=== PATIENT | male | born 1965 | race Caucasian/White ===

== ENCOUNTER → 2023-07-12 | Outpatient (CLI) | payer BC ==
[2023-07-12 13:14] LABS: Basophils # (A) 0.06 X 10*3/uL (0.00-0.10); Eosinophils % (A) 4.9 %; HCT 45.5 % (39.6-50.0); HGB 15.4 g/dL (13.0-17.0); Lymphocytes # (A) 1.93 X 10*3/uL (0.90-5.00); Lymphocytes % (A) 31.7 %; MCH 31.3 pg (27.0-32.0); MCHC 33.8 g/dL (32.0-37.0); MCV 92.5 FL (80.0-97.0); Mean Platelet Volume 10.6 FL (9.5-12.2); Monocytes # (A) 0.53 X 10*3/uL (0.20-1.00); Monocytes % (A) 8.7 %; NRBC Per 100 WBC 0 X 10*3/uL (0.00-0.01); Neutrophils # (A) 3.25 X 10*3/uL (1.80-7.70); Neutrophils % (A) 53.4 %; Platelet Count 216 X 10*3/uL (140-440); RBC 4.92 X 10*6/uL (4.40-5.60); RDW 12.2 % (11.5-14.5); WBC 6.09 X 10*3/uL (4.50-10.00)
[2023-07-12 13:18] LABS: Calcium 9.2 mg/dL (8.7-10.3); Chloride 103 mmol/L (96-109); Glucose 117 mg/dL (70-110); Potassium 4.3 mmol/L (3.5-5.5); Sodium 137 mmol/L (135-145)
[2023-07-12 13:46] LABS: INR 1.01 sec (0.93-1.11); Prothrombin Time 10.9 sec (9.9-11.9)
== END | disposition home or self-care (01) ==
LOC: LABPAT 08:09
PROVIDERS: ATTEND Orthopaedic Surgery
DX: Z01.818 Encounter for other preprocedural examination (principal); M17.12 Unilateral primary osteoarthritis, left knee; Z22.322 Carrier or suspected carrier of Methicillin resistant Staphylococcus aureus
CPT/HCPCS: 80048; 85025; 85610; 87070; 93005

== ENCOUNTER 2023-08-05 08:25 | Day surgery (SDC) | payer BC ==
[2023-07-31 15:30] VITALS: BMI 30.3
--- NOTE | 2023-08-04 08:35 | P.HPOR ---
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 He notes swelling and stiffness. He has a difficult time with walking and getting up from a seated position. He has a history of a patella fracture treated operatively in the 80s. Review of Systems As per HPI Past Medical History Past Medical History: No Reported History History of Any Multi-Drug Resistant Organisms: None Reported Past Surgical History: Orthopedic Surgery Additional Past Surgical History / Comment(s): left knee surgery with hardware x2 (shattered knee), left arm shattered and repaired with hardware and later hardware removed, eye surgery for metal removal Past Anesthesia/Blood Transfusion Reactions: No Reported Reaction Past Psychological History: No Psychological Hx Reported Smoking Status: Never smoker Past Alcohol Use History: Rare Past Drug Use History: None Reported - Past Family History Mother Family Medical History: Unable to Obtain Additional Family Medical History / Comment(s): does not know any family or hx Medications and Allergies Home Medications Medication Instructions Recorded Confirmed Type No Known Home Medications 07/31/23 07/31/23 History Allergies Allergy/AdvReac Type Severity Reaction Status Date / Time acetaminophen [From Vicodin] Allergy "felt Verified 07/31/23 15:18 funny and uncomfortable, anxious" hydrocodone [From Vicodin] Allergy "felt Verified 07/31/23 15:18 funny and uncomfortable, anxious" morphine AdvReac Nausea & Verified 07/31/23 15:18 Vomiting Physical Examination - Knee left Appearance: effusion Effusion grade: grade 2 Varus alignment in stance: 5 degrees Tenderness with palpation: anterior, medial Pain: throughout ROM Gait: limping ROM: extension: -15 degrees ROM: flexion: 120 degrees Crepitus with motion: Yes Strength: extension: 5/5 Strength: flexion: 5/5 Meniscal tests: medial meniscal tests: positive, medial joint line pain: positive Results Patient is a well-developed well-nourished male approximately 6 foot 1, 230 pounds of mesomorphic habitus. HEENT exam is nonfocal, neck supple. He has painless passive motion of the left hip. Straight leg raise is negative. He's tender about the anterior medial aspect of left knee. He has moderate crepitus. Collaterals are stable, Jozef was negative, Tulio's elicits medial pain. He has pain with patellofemoral compression. His distal neurovascular appears intact in the left lower extremity. - Diagnostic results Knee x-ray: image reviewed (X-rays of the left knee obtain the office show severe patellofemoral compartment osteoarthrosis with moderate to severe medial and lateral compartment osteoarthrosis/chondrocalcinosis. Broken patellar hardware is noted.) Assessment and Plan Assessment: Left knee severe patellofemoral compartment osteoarthrosis/pseudogout History of ORIF left patella fracture with irritating hardware Plan: I talked to the patient regarding his condition along with treatment options. At this point he is quite symptomatic and limited despite previous conservative measures. After a thorough discussion of his options he opts to proceed with surgery. We will plan to proceed with left total knee arthroplasty along with possible hardware removal. Risks and benefits were discussed at length in layman's terms. We will institute DVT prophylaxis postoperatively.
[~2023-08-05 08:25] MED LIST: MIDAZOLAM 2 MG/2 ML VIAL IV PRN; TRANEXAMIC 1,000 MG/100ML-NACL 1,000 MG in SALINE 1 100ML.BAG IVPB PRN; fentaNYL (PF) 50 MCG/ML 2 ML AMP IV PRN
[2023-08-05] MEDS: LACTATED RINGERS 1,000 ML IV ONE ×2 (08:39→12:15)
[2023-08-05] MEDS: MELOXICAM 7.5 MG TAB PO PRN (09:20)
[2023-08-05] MEDS: DEXAMETHASONE SOD PHOSPHATE 4 MG/ML 1 ML VIAL IV ONE (09:20)
[2023-08-05] MEDS: ACETAMINOPHEN TAB 500 MG TAB PO PRN (09:20)
[2023-08-05] MEDS: ONDANSETRON 4 MG/2 ML VIAL IVP ONE (09:20)
[2023-08-05] MEDS: MIDAZOLAM 2 MG/2 ML VIAL IVP ONE (09:35)
[2023-08-05] MEDS: fentaNYL (PF) 50 MCG/ML 2 ML AMP IVP ONE (09:35)
[2023-08-05] MEDS ORDERED: PROPOFOL 10 MG/ML 20 ML VIAL IV ONE (10:10)
[2023-08-05] MEDS ORDERED: ROPIVACAINE 5 MG/ML 30 ML VIAL ONE (10:10)
[2023-08-05] MEDS ORDERED: SODIUM CHLORIDE 0.9% (PF) 10 ML VIAL ONE (10:10)
[2023-08-05] MEDS ORDERED: fentaNYL (PF) 50 MCG/ML 2 ML AMP ONE (10:10)
[2023-08-05] MEDS ORDERED: GLYCOPYRROLATE 0.2 MG/ML 2 ML VIAL ONE (10:10)
[2023-08-05] MEDS ORDERED: TRANEXAMIC 1,000 MG/100ML-NACL PREMIX BAG ONE (10:10)
[2023-08-05] MEDS ORDERED: MIDAZOLAM 2 MG/2 ML VIAL ONE (10:10)
--- NOTE | 2023-08-05 10:16 | P.ANPRN ---
Procedure Note - Anesthesia - Nerve Block Performed Left Adductor Canal Infusion Time Out Performed: Yes (0934) Date of Procedure: 08/05/23 Procedure Start Time: :35 Procedure Stop Time: :40 Location of Patient: PreOp Indication: Acute Post-Operative Pain, Requested by Surgeon Specifically requested for management of pain by : Arsenio Sorenson Sedation Type: Sedate with meaningful contact maintained Preparation: Sterile Prep, Sterile Dressing Position: Supine Catheter Depth at Skin (cm): 8 Catheter: Indwelling Needle Types: Pajunk Needle Gauge: 18 Ultrasound used to visualize needle placement: Yes Ultrasound used to observe medication spread: Yes Injectate: 0.5% Ropivacaine (see comment for volume) (20cc +10cc nacl pf) Blood Aspirated: No Pain Paresthesia on Injection Noted: No Resistance on Injection: Normal Image Stored and Saved: Yes Events: Uneventful and Well Tolerated
--- NOTE | 2023-08-05 10:17 | P.ANPRN ---
Procedure Note - Anesthesia - Nerve Block Performed Left iPack Single Time Out Performed: Yes (0934) Date of Procedure: 08/05/23 Procedure Start Time: :41 Procedure Stop Time: :43 Location of Patient: PreOp Indication: Acute Post-Operative Pain, Requested by Surgeon Specifically requested for management of pain by DrThompson: Arsenio Sorenson Sedation Type: Sedate with meaningful contact maintained Preparation: Sterile Prep Position: Supine Catheter: None Needle Types: Pajunk Needle Gauge: 21 Ultrasound used to visualize needle placement: Yes Ultrasound used to observe medication spread: Yes Injectate: 0.5% Ropivacaine (see comment for volume) (20cc+10cc nacl pf) Blood Aspirated: No Pain Paresthesia on Injection Noted: No Resistance on Injection: Normal Image Stored and Saved: Yes Events: Uneventful and Well Tolerated
[2023-08-05] MEDS: ceFAZolin 1,000 MG in SODIUM CHLORIDE 0.9% 1,000 ML IRRIGATION ONE (10:43)
[2023-08-05] MEDS ORDERED: HYDROmorphone 0.5 MG/0.5 ML SYRINGE IVP PRN (12:17)
[2023-08-05] MEDS ORDERED: NALOXONE 0.4 MG/ML 1 ML VIAL IV PRN (12:17)
[2023-08-05] MEDS ORDERED: traMADol 50 MG TAB PO PRN (12:17)
[2023-08-05] MEDS ORDERED: HYDROmorphone 1 MG/ML 1 ML SYRINGE IVP PRN (12:17)
--- NOTE | 2023-08-05 12:42 | P.OP ---
Date of Procedure: 08/05/23 Preoperative Diagnosis: Left knee severe tricompartmental osteoarthrosis Retained hardware left patella Postoperative Diagnosis: Same Procedure(s) Performed: Left total knee arthroplastycementedposterior substituting Removal retained hardware left patella2 screws and tension band wire Implants: Depuy Attune size 8 cemented femoral component, size 8 cemented tibial component, 14 x 50 mm tibial stem, 9 mm articular surface, 41 mm cemented patellar component. This is a posterior stabilized implant. Anesthesia: regional, spinal Surgeon: Arsenio Sorenson Reference Archivist #1: Ralph Florez Estimated Blood Loss (ml): 50 Pathology: none sent Condition: stable Disposition: PACU Indications for Procedure: The patient is a 58-year-old male who presents with progressive left knee pain secondary to osteoarthrosis despite conservative measures. He has a history of ORIF of a comminuted left patella fracture x 2 in the past. A discussion of the risks and benefits of operative intervention versus continued conservative measures was made with the patient. He opted to proceed with surgery. Operative risks include infection, neurovascular injury, development blood clots, fracture, possible component loosening/failure and possible need for subsequent procedures was discussed. Informed consent was obtained. Operative Findings: As below Description of Procedure: The patient was brought to the operating room, and after induction of spinal anesthesia the left lower extremity was prepped and draped in a normal fashion. The tourniquet was inflated to 270 mm marker. A longitudinal incision extending 3 finger breaths above the superior pole of patella extending to the medial aspect the tibial tubercle was then made. The skin and subcutaneous tissues were divided sharply. Electrocautery was used for hemostasis. A medial parapatellar arthrotomy was performed. The medial soft tissues to include the superficial and deep portions of the medial collateral ligament were elevated subperiosteally. The patella was everted. A portion of the retropatellar fat pad was excised sharply. The anterior cruciate ligament was sacrificed. Blunt retractors were placed. A starting hole was made in the distal femur 1 cm anterior to the posterior cruciate ligament origin. An intramedullary femoral guide was then inserted planning on 5 valgus distal cut with 9 mm distal res ection. The cutting block was pinned in place. The distal cut was then made. The posterior referencing sizing guide was utilized. I felt size 8 was most appropriate. 3 of external rotation was built into the system and verified off the trans-epicondylar axis and the posterior condyles. The cutting block was pinned in place. The anterior, posterior, and chamfer cuts then made. Bone fragments were removed. The intercondylar guide was placed and the notch cut was made with a sagittal saw. The bone block was removed in one fragment. The trial component was then placed. There is good anterior to posterior and medial to lateral fit. The distal peg holes were drilled. The trial component was removed. Attention was then paid towards preparing the proximal tibia. An extra medullary guide was utilized in line with the tibial shaft and second metatarsal distally. I planned on 2 mm resection from the medial compartment. The cutting block was pinned in place. The proximal tibial cut was then made. The bone was removed in one fragment. The remnants of the medial and lateral menisci were excised at the capsular junction with electrocautery. The tibia sized most appropriately at size 8. The trial femoral and tibial components were placed along with a 9 mm articular surface. I was able to obtain full flexion and extension with internal and external rotation. After several flexion and extension cycles, the tibial rotation was marked with electrocautery line with the medial one third of the tibial tubercle. Attention was then paid towards preparing the patella. 2 screws were present on the articular surface and had to be removed to proceed with reaming. A portion of the tension band wire was also removed. A patella reamer was utilized taking stem to 14 mm of bone stock. A good flush cut was made. The patella sized most appropriately 41 mm. The peg holes were drilled. The trial components placed. I had good patellofemoral tracking with no hands technique. The trial components were then removed. The tibia was prepared in the appropriate rotation with appropriate drill and keel punch planning on a 14 x 50 mm stem extension the posterior osteophytes were removed with a curved osteotome. The flexion and extension gaps were checked and felt to be symmetric at 9 mm. A trial components were then removed. The bony surfaces were prepared with pulsatile lavage and dried. The tibial component was then cemented place was fully seated. Excess cement was removed. The femoral component cemented place and was fully seated. Excess cement was removed. The trial 9 mm articular surface was placed and the knee was put in full extension. The patella component was cemented place. After the cement had sufficiently hardened, the knee was again taken through a range of motion. Again I was able to obtain full flexion and extension with varus and valgus stress. The trial 9 mm articular surface was removed and the final one inserted. This was fully seated. Care was taken to avoid any soft tissue interposition. Pulsatile lavage was again utilized. The medial parapatellar arthrotomy was closed with #2 Ethibond suture. The tourniquet was deflated with approximately 60 minutes total tourniquet time. Final hemostasis was obtained with the cautery. There was minimal bleeding therefore a deep drain was not placed. The subcutaneous tissues were reapproximated with interrupted 2-0 Vicryl sutures. The skin was reapproximated with 3-0 subcuticular strata fix suture. Skin tape and adhesive was applied. A sterile dressing was applied. The patient was awoken from sedation and transferred to recovery room in good condition. Blood loss was estimated at 50 mL. No complications were incurred. Sponge and needle counts were correct at the end of the case. Balaji SANTANA assisted during the major components of this case to include exposure, bone resection, implantation, and closure.
[2023-08-05] MEDS: ROPIVACAINE 1,100 MG, SODIUM CHLORIDE 0.9% 500 ML 330 ML, EMPTY PAIN BALL 1 EACH MISCELLANE PRN (12:58)
--- NOTE | 2023-08-05 13:16 | XR ---
EXAMINATION TYPE: XR knee limited LT DATE OF EXAM: 08/05/2023 1:10 PM CLINICAL INDICATION:Male, 58 years old with history of Evaluation for Postop abnormality and alignmen t; [facility] COMPARISON: None. TECHNIQUE: XR knee limited LT; examined in Frontal, lateral and oblique projections. FINDINGS: Status post total knee arthroplasty changes with hardware in appropriate alignment and in tact. No evidence of fracture. Subcutaneous lucencies and lucencies within the joint consistent with surgical changes. IMPRESSION: Status post total knee arthroplasty changes with hardware intact and appropriate alignment. No fractu res identified.
[2023-08-05] MEDS: LACTATED RINGERS 1,000 ML IV SCH (15:10)
[2023-08-05] MEDS: SCOPOLAMINE 1 MG/72 HR PATCH TRANSDERM ONE (15:11)
--- NOTE | 2023-08-05 17:39 | P.CONS ---
History of Present Illness - Reason for Consult Consult date: 08/05/23 Medical Management Requesting physician: Arsenio Sorenson - History of Present Illness History of Presenting Illness: Patient is a pleasant 58-year-old male with no reported past medical history of osteoarthrosis and pseudogout. He is currently admitted under orthopedic surgery team status post left total knee arthroplasty and removal of retained hardware of left patella including screws and tension band. This was a planned elective procedure completed by Dr. Sorenson. We have been consulted for medical management throughout patient's hospitalization. Patient seen and fully evaluated at bedside in room 453. He currently reports feeling moderate suprapubic pressure, but is currently experiencing postoperative urinary retention. Patient also reports numbness of buttocks and left lower extremity. Movement and sensation remains intact. He denies having any postoperative nausea or vomiting and is tolerating oral intake well. Patient denies having any headache, lightheadedness, dizziness, chest pain, palpitations, shortness of breath, cough or congestion, or any other complaints at this time. Review of systems: Pertinent positives and negatives as discussed in HPI, a complete review of systems was performed and all other systems are negative. Physical exam: Vital signs reviewed and stable. General: Nontoxic, no distress and appears stated age. Derm: Skin warm and dry, normal coloration for ethnicity. Head: Atraumatic, normocephalic and symmetric. Eyes: EOMs intact, no lid lag, and anicteric sclera Mouth: no lip lesions, mucus membranes moist Cardiovascular: regular rate and rhythm with normal S1S2, no murmur, positive posterior tibial pulses bilaterally, and cap refill < 2 seconds. Lungs: Respirations even, regular, and unlabored on room air. Lungs CTA bilaterally, no rhonchi, no rales, no wheezing, and no accessory muscle usage. Abdominal: soft, nontender to palpation, no guarding, no appreciable organomegaly Ext: Movement and sensation intact. No gross muscle atrophy, no edema, no contractures Neuro: Speech clear, face symmetrical and CN II-XII grossly intact with no noted focal neuro deficits Psych: Alert and oriented to person, place, time, and situation. Appropriate and pleasant affect. Assessment and Plan of Care: Postoperative urinary retention Order placed for bladder scan as needed to monitor for urinary retention/postvoid residual patient to be straight cathed as needed for urinary retention greater than or equal to 300 cc Monitor I's and O's If no improvement, will start patient on Flomax 0.4 mg daily. Osteoarthrosis and pseudogout Status post left total knee arthroplasty Management per primary admitting orthopedic surgery team including DVT prophylaxis, pain management, wound/dressing management, weightbearing, and PT/OT. Data reviewed Reviewed preoperative labs completed 07/12/2023 showing a preoperative hemoglobin of 15.4 and WBC count of 6.09.. Order placed for morning CBC, BMP, and magnesium. Will follow-up on these results and place additional orders if indicated based upon these findings. Vital signs reviewed and stable. Blood pressure 124/63, heart rate 73, respiratory rate 18, and temp 97.3 F. Thank you for allowing us to participate in the care of this pleasant patient. Do not hesitate to contact us with questions. Someone can be reached from the [facility] hospitalist group all hours of the day at [phone] or via [employer]. Patient was seen independently by Nurse Practitioner. This document was prepared using [employer] dictation software. Please allow for errors in qa developer while rare they do occur. Jose Granados NP rendered care for this patient independently, reviewed the findings and plan as documented in the note above. I did not physically speak with or examine the patient on this date. Past Medical History Past Medical History: No Reported History History of Any Multi-Drug Resistant Organisms: None Reported Past Surgical History: Orthopedic Surgery Additional Past Surgical History / Comment(s): left knee surgery with hardware x2 (shattered knee), left arm shattered and repaired with hardware and later hardware removed, eye surgery for metal removal Past Anesthesia/Blood Transfusion Reactions: No Reported Reaction Past Psychological History: No Psychological Hx Reported Smoking Status: Never smoker Past Alcohol Use History: Rare Past Drug Use History: None Reported - Past Family History Mother Family Medical History: Unable to Obtain Additional Family Medical History / Comment(s): does not know any family or hx Medications and Allergies Home Medications Medication Instructions Recorded Confirmed Type No Known Home Medications 07/31/23 08/05/23 History Allergies Allergy/AdvReac Type Severity Reaction Status Date / Time acetaminophen [From Vicodin] Allergy "felt Verified 08/05/23 09:11 funny and uncomfortable, anxious" hydrocodone [From Vicodin] Allergy "felt Verified 08/05/23 09:11 funny and uncomfortable, anxious" morphine AdvReac Nausea & Verified 08/05/23 09:11 Vomiting Physical Exam Osteopathic Statement: *. No significant issues noted on an osteopathic structural exam other than those noted in the History and Physical/Consult. Vitals: Vital Signs Temp Pulse Pulse Resp BP Pulse Ox 08/05/23 14:45 97.3 F L 68 18 152/75 96 08/05/23 14:08 53 L 16 121/79 96 08/05/23 13:53 54 L 16 119/66 96 08/05/23 13:38 60 16 126/80 97 08/05/23 13:23 60 16 119/78 96 08/05/23 13:08 69 16 118/77 97 08/05/23 12:53 64 16 123/74 100 08/05/23 12:38 97 F L 74 10 L 120/71 99 08/05/23 09:45 64 16 119/74 98 08/05/23 08:49 98.0 F 63 16 128/74 96 Intake and Output 08/05/23 08/05/23 08/05/23 06:59 14:59 22:59 Intake Total 1251 Output Total 50 Balance 1201 Intake: IV 1251 Output: Estimated Blood Loss 50
[2023-08-05] MEDS: ONDANSETRON 4 MG/2 ML VIAL IVP PRN (17:50)
[2023-08-05] MEDS: Acetaminophen-Codeine 300-30mg TAB PO PRN (18:13)
[2023-08-05 21:20] VITALS: TEMP 98.7
--- NOTE | 2023-08-06 08:31 | P.PN ---
Progress Note - Text Progress Note Date: 08/06/23 Postoperative day # 1 status post total knee arthroplasty, and adductor canal catheter placed for postoperative analgesia, currently at ropivacaine 0.2% 8 mL per hour and continuous infusion, visual analogue scale is 4/10, patient using oral pain medication for breakthrough pain. Assessment and plan= Acute postoperative pain, adductor canal catheter for pain control, pain is well controlled we'll continue the same management.
[2023-08-06 08:59] LABS: HGB 12.3 g/dL (13.0-17.0); MCH 31.7 pg (27.0-32.0); MCHC 34.2 g/dL (32.0-37.0); MCV 92.8 FL (80.0-97.0); Mean Platelet Volume 10.6 FL (9.5-12.2); NRBC Per 100 WBC 0 X 10*3/uL (0.00-0.01); Platelet Count 179 X 10*3/uL (140-440); RBC 3.88 X 10*6/uL (4.40-5.60); RDW 12.7 % (11.5-14.5)
[2023-08-06 09:52] VITALS: BP 133/66; PULSE 70; RESP 18
[2023-08-06 10:00] LABS: Calcium 8.5 mg/dL (8.7-10.3); Chloride 106 mmol/L (96-109); Glucose 135 mg/dL (70-110); Magnesium 1.9 mg/dL (1.5-2.4); Potassium 4.2 mmol/L (3.5-5.5); Sodium 140 mmol/L (135-145)
--- NOTE | 2023-08-06 10:44 | P.PN ---
Subjective Progress Note Date: 08/06/23 Hospital Course: Patient is a pleasant 58-year-old male with no reported past medical history of osteoarthrosis and pseudogout. He is currently admitted under orthopedic surgery team status post left total knee arthroplasty and removal of retained hardware of left patella including screws and tension band. This was a planned elective procedure completed by Dr. Sorenson. We have been consulted for medical management throughout patient's hospitalization. Physical exam: Patient seen and fully evaluated at bedside this morning. He was sitting up in the recliner and appeared to be doing well. He had full resolution of postoperative urinary retention and only required straight catheterization x 1 event. Patient has ice packs and postoperative dressing in place to left knee. He reports working with PT/OT and having no difficulties. Patient reports controlled postoperative pain at this time. Vital signs reviewed and stable. General: Nontoxic, no distress and appears stated age. Derm: Skin warm and dry, normal coloration for ethnicity. Head: Atraumatic, normocephalic and symmetric. Eyes: EOMs intact, no lid lag, and anicteric sclera Mouth: no lip lesions, mucus membranes moist Cardiovascular: regular rate and rhythm with normal S1S2, no murmur, positive posterior tibial pulses bilaterally, and cap refill < 2 seconds. Lungs: Respirations even, regular, and unlabored on room air. Lungs CTA b ilaterally, no rhonchi, no rales, no wheezing, and no accessory muscle usage. Abdominal: soft, nontender to palpation, no guarding, no appreciable organomegaly Ext: Movement and sensation intact. No gross muscle atrophy, no edema, no contractures Neuro: Speech clear, face symmetrical and CN II-XII grossly intact with no noted focal neuro deficits Psych: Alert and oriented to person, place, time, and situation. Appropriate and pleasant affect. Assessment and Plan of Care: Postoperative urinary retention. Patient had full resolution of postoperative urinary retention and only required straight catheterization x 1 event. No need for further intervention at this time. Mild postoperative leukocytosis, expected and stable finding with WBC count of 13.70. This is reactive secondary to surgical procedure. Acute postoperative blood loss anemia with preoperative hemoglobin of 15.4 and postoperative hemoglobin of 12.3. This is a stable and expected finding. No need for transfusion or any further interventions at this time. Osteoarthrosis and pseudogout Status post left total knee arthroplasty Management per primary admitting orthopedic surgery team including DVT prophylaxis, pain management, wound/dressing management, weightbearing, and PT/OT. Mild hypertriglyceridemia -Lipid profile drawn 05/29/2015 showed elevated triglycerides of 285, total cholesterol of 224, LDL of 133, and HDL of 34. -Repeat lipid profile completed this morning showing improvement from lipid profile in 2016, triglycerides slightly elevated at 178 and remaining lipid profile unremarkable with the exception of low HDL of 33.40. -Recommend patient continue heart healthy diet. Data reviewed Postoperative labs reviewed. CBC showing leukocytosis with WBC count of 13.70 and normocytic anemia with hemoglobin of 12.3. BMP unremarkable. Magnesium normal findings at 1.9. Lipid profile showing mild hypertriglyceridemia with triglycerides of 178 and low HDL of 33.40. Vital signs reviewed and stable. Blood pressure 133/66, heart rate 70, respiratory rate 18, temp 98.7 F, and SpO2 of 95% on room air. Patient is cleared from medical perspective for discharge with no further rec ommendations at this time, patient may be discharged once cleared by primary admitting orthopedic surgery team. Thank you for allowing us to participate in the care of this pleasant patient. Do not hesitate to contact us with questions. Someone can be reached from the [facility] hospitalist group all hours of the day at [phone] or via [employer]. Patient was seen independently by Nurse Practitioner. This document was prepared using [employer] dictation software. Please allow for errors in diesel engineer while rare they do occur. Objective - Vital Signs Vital signs: Vital Signs Temp 98.7 F 08/06/23 01:14 Pulse 74 08/06/23 01:14 Resp 16 08/06/23 01:14 BP 125/52 08/06/23 01:14 Pulse Ox 92 L 08/06/23 01:14 FiO2 Intake & Output 08/05/23 08/06/23 08/06/23 18:59 06:59 18:59 Intake Total 1251 Output Total 950 1000 Balance 301 -1000 Weight 104.326 kg Intake: IV 1251 Output: Urine 900 1000 Straight 900 Estimated Blood Loss 50 Other: Voiding Method Urinal # Voids 0 - Labs CBC & Chem 7: 08/06/23 05:11 08/06/23 05:11
--- NOTE | 2023-08-06 11:01 | P.DS ---
Providers Date of admission: 08/05/2023 Expected date of discharge: 08/06/23 Attending physician: Arsenio Sorenson Consults: 08/05/23 12:17 Consult Physician Routine Consulting Provider: Mariza Rogers Consult Reason/Comments: medical management Do you want consulting provider notified?: Yes Primary care physician: Stated None Hospital Course: Date of admission: 08/05/2023 Date of discharge: 08/06/2023 Admission diagnosis: Left knee osteoarthritis Discharge diagnosis: Same Attending physician: Dr. Sorenson Surgical procedures: Left total knee arthroplastycementedposterior sub stituting Removal retained hardware left patella2 screws and tension band wire Brief history: Patient is a 58-year-old male with a history of progressive primary left knee osteoarthritis. At this point patient has failed conservative treatment measures and has opted to proceed with a elective left total knee arthroplasty cemented posterior substituting removal retained hardware left patella. Hospital course: Details of patient's surgery can be found in operative report. Patient tolerated the procedure well and was subsequently transported to orthopedic floor. Patient's orthopeidc and medical care was provided daily. Patient had daily laboratory tests performed for evaluation of overall blood counts. Patient had daily physical therapy to include strengthening range of motion as well as education with walker ambulation. Patient was treated with Xarelto for their postoperative DVT prophylaxis during their inpatient stay. Patient was noted to have a relatively uneventful postoperative course. Patient reported satisfactory pain control with oral pain medications by postoperative day 1. Patient showed satisfactory progress with physical therapy. Patient moved steadily through the program and had no difficulty meeting the goals by postoperative day 1. Given patient's otherwise satisfactory course and having met physical therapy goals, plan is to discharge patient home with health services on postoperative day 1. Discharge condition/disposition: Patient will be discharged home with health services in stable condition. Discharge medications: Instructions are given on resumption of patient's normal daily medications per primary care recommendation, in addition patient will be prescribed. Discharge instructions: 1. Wound care and infection precautions, keep incision dry and covered while showering, no lotions, creams, moisturizers. No soaking, tubs, pools, hottubs. Do not scrub over the incision. 2. Weight-bear as tolerated with walker / cane until follow-up. 3. Ice and elevate when necessary. Do not exceed 20 minutes per hour with ice pack. 4. Utilize compression sleeve until seen at first follow up appointment. 5. Visiting nursing care. 6. Home physical therapy including home CPM. 7. Pain meds and anticoagulants per prescription. 8. Pain medication has potential to cause constipation. Increase oral fluid and fiber intake. Contact primary care provider if you have not had a bowel movement within 48 hours after discharge 9. No anti-inflammatory medication until discussed at first post operative visit, this including Motrin, Aleve, Mobic, Diclofenac. 10. Follow up in office at 2 weeks postop with Balaji Florez PA-C / Bruno Hunt PA-C 11. Follow up with your primary care doctor 7-10 days after discharge. 12. Contact [facility] with any questions, . Keep incision clean, dry contact. Wash wound, cover fusion tape with Saran wrap. Keep fusion tape on till follow-up appointment in office in 2 weeks Assessment: Left knee osteoarthritis Procedures: Left total knee arthroplastycementedposterior substituting Removal retained hardware left patella2 screws and tension band wire Patient Condition at Discharge: Good Plan - Discharge Summary Discharge Rx Participant: No New Discharge Prescriptions: No Action No Known Home Medications Discharge Medication List No Known Home Medications 07/31/23 [History] Follow up Appointment(s)/Referral(s): Nehal Jackman MD [REFERRING] - 1 Week (Please schedule appointment to establish care with a PCP) Bruno Hunt PAC [PHYSICIAN ATHLETIC SHOE DESIGNER] - 2 Weeks Activity/Diet/Wound Care/Special Instructions: Discharge instructions: 1. Wound care and infection precautions, keep incision dry and covered while showering, no lotions, creams, moisturizers. No soaking, tubs, pools, hottubs. Do not scrub over the incision. 2. Weight-bear as tolerated with walker / cane until follow-up. 3. Ice and elevate when necessary. Do not exceed 20 minutes per hour with ice pack. 4. Utilize compression sleeve until seen at first follow up appointment. 5. Visiting nursing care. 6. Home physical therapy including home CPM. 7. Pain meds and anticoagulants per prescription. 8. Pain medication has potential to cause constipation. Increase oral fluid and fiber intake. Contact primary care provider if you have not had a bowel movement within 48 hours after discharge 9. No anti-inflammatory medication until discussed at first post operative visit, this including Motrin, Aleve, Mobic, Diclofenac. 10. Follow up in office at 2 weeks postop with Balaji Florez PA-C / Bruno Hunt PA-C 11. Follow up with your primary care doctor 7-10 days after discharge. 12. Contact [facility] with any questions, . Keep incision clean, dry contact. Wash wound, cover fusion tape with Saran wrap. Keep fusion tape on till follow-up appointment in office in 2 weeks Discharge Disposition: HOME WITH HOME HEALTH SERVICES
--- NOTE | 2023-08-06 12:34 | P.PN ---
Subjective Progress Note Date: 08/06/23 Principal diagnosis: Left knee osteoarthritis Patient was seen at bedside this morning sitting up in chair with dressing present over left knee. Patient says he is looking forward to going home later today. Patient says she does have a walker at home. Patient says she did do w ell with therapy this morning and walked down the pink and up and down stairs. Patient says his will be at home and be able to help him in recovery. Patient says he has urinated several times since surgery without issue. Patient says he has not had a bowel yet, however, patient says he has been passing gas. Patient denies chest pain, fever, shortness of breath, nausea, vomiting, change in vision, loss of bowel/bladder control. Objective - Vital Signs Vital signs: Vital Signs Temp 98.7 F 08/06/23 07:53 Pulse 70 08/06/23 07:53 Resp 18 08/06/23 07:53 BP 133/66 08/06/23 07:53 Pulse Ox 95 08/06/23 07:53 FiO2 Intake & Output 08/05/23 08/06/23 08/06/23 18:59 06:59 18:59 Intake Total 1251 Output Total 950 1000 200 Balance 301 -1000 -200 Weight 104.326 kg Intake: IV 1251 Output: Urine 900 1000 200 Straight 900 Estimated Blood Loss 50 Other: Voiding Method Urinal # Voids 0 - Exam Left knee: Incision is clean, dry, and intact. The exofin fusion tape is in good condition. There is minimal soft tissue swelling and ecchymosis surrounding the medial and lateral aspects of the incision. Calf is soft, no tenderness with palpation. Plantar flexion, dorsiflexion, EHL, FHL are intact. Sensory exam to light touch throughout the extremity is intact, dorsal pedis pulses 2+. - Labs CBC & Chem 7: 08/06/23 05:11 08/06/23 05:11 Labs: Abnormal Lab Results - Last 24 Hours (Table) 08/06/23 08/06/23 Range/Units 05:11 05:11 WBC 13.70 H (4.50-10.00) X 10*3/uL RBC 3.88 L (4.40-5.60) X 10*6/uL Hgb 12.3 L (13.0-17.0) g/dL Hct 36.0 L (39.6-50.0) % Glucose 135 H (70-110) mg/dL Calcium 8.5 L (8.7-10.3) mg/dL Assessment and Plan Assessment: 1. Left knee osteoarthritis -Postop day 1 status post Left total knee arthroplastycementedposterior substituting Removal retained hardware left patella2 screws and tension band wire Plan: 1. Left knee osteoarthritis -surgery form yesterday, 08/05/2023 Left total knee arthroplastycementedposterior substituting; Removal retained hardware left patella2 screws and tension band wire. Patient stable at bedside this morning. Patient does have walker at home. Patient did do well with PT this morning. Discharge home today with health services. 2. Appreciate medical management 3. Pain management -Tylenol with codeine; tramadol 4. DVT prophylaxis -Xarelto in hospital. Going home with Eliquis 2.5 mg twice daily x 2 weeks 5. GI prophylaxis -senna 6. PT/OT -weightbearing as tolerated with walker 7. Encourage incentive spirometer use 8. Discharge planning home to day with health services Time with Patient: Less than 30
[2023-08-06 15:13] LABS: Chol/HDL Ratio 5.57 Ratio
[2023-08-07] MEDS ORDERED: RIVAROXABAN 10 MG TAB PO SCH (09:00)
== END 2023-08-06 14:12 | disposition home health service (06) ==
LOC: OR 08:25 → 4SSUR 12:33 → OR 08-06 14:12
PROVIDERS: ATTEND Orthopaedic Surgery
DX: M17.12 Unilateral primary osteoarthritis, left knee (principal); T84.117A Breakdown (mechanical) of internal fixation device of bone of left lower leg, initial encounter; G89.18 Other acute postprocedural pain; Z79.01 Long term (current) use of anticoagulants; Z88.5 Allergy status to narcotic agent; Z79.899 Other long term (current) drug therapy
CPT/HCPCS: 97161; 64999; 64448; 80061; 80048; 83735; 85027; 73560; 27447; C1713 ×2; C1776; C1751; J2250; J1100; J0690 ×3; J2405; J3010; J2795; J2704

== ENCOUNTER 2023-08-12 14:22 | Emergency (ER) | payer BC ==
--- NOTE | 2023-08-12 15:16 | ED ---
General Adult HPI - General Chief complaint: Recheck/Abnormal Lab/Rx Stated complaint: Abd labs Time Seen by Provider: 08/12/23 15:01 Source: patient, RN notes reviewed, old records reviewed Mode of arrival: wheelchair Limitations: no limitations - History of Present Illness Initial comments: 58-year-old male presenting for evaluation of left leg pain and swelling. Patient received an outpatient ultrasound today which was positive for DVT in the peroneal vein. He is 1 week postop left total knee. No chest pain or dyspnea. - Related Data Previous Rx's Medication Instructions Recorded Apixaban [Eliquis] 2.5 mg PO BID #60 tab 08/06/23 Apixaban [Eliquis Starter Pack 5 - 10 mg PO DIRECTED 30 Days 08/12/23 (for VTE)] #1 each Allergies Allergy/AdvReac Type Severity Reaction Status Date / Time hydrocodone [From Vicodin] Allergy "felt Verified 08/12/23 15:27 funny and uncomfortable, anxious" morphine AdvReac Nausea & Verified 08/12/23 15:27 Vomiting Review of Systems ROS Statement: Those systems with pertinent positive or pertinent negative responses have been documented in the HPI. ROS Other: All systems not noted in ROS Statement are negative. Past Medical History Past Medical History: No Reported History History of Any Multi-Drug Resistant Organisms: None Reported Past Surgical History: Orthopedic Surgery Past Psychological History: No Psychological Hx Reported Smoking Status: Never smoker Past Alcohol Use History: Rare Past Drug Use History: None Reported General Exam Limitations: no limitations General appearance: alert, in no apparent distress Head exam: Present: atraumatic, normocephalic Eye exam: Present: normal appearance, PERRL ENT exam: Present: normal exam Neck exam: Present: normal inspection. Absent: tenderness, meningismus Respiratory exam: Present: normal lung sounds bilaterally. Absent: respiratory distress, wheezes Cardiovascular Exam: Present: regular rate, normal rhythm GI/Abdominal exam: Present: soft. Absent: distended, tenderness, guarding Extremities exam: Present: normal capillary refill, calf tenderness, other (Pulses intact, soft compartments). Absent: pedal edema Neurological exam: Present: alert, oriented X3 Psychiatric exam: Present: normal affect, normal mood Skin exam: Present: warm, dry, intact Course Vital Signs 08/12/23 14:29 Temperature 98.5 F Pulse Rate 84 Respiratory 16 Rate Blood Pressure 124/79 O2 Sat by Pulse 97 Oximetry Medical Decision Making - Medical Decision Making Was pt. sent in by a medical professional or institution ([facility] Pérez, ACTIVITY COORDINATOR, urgent care, hospital, or alf...) When possible be specific @Presented with positive ultrasound for DVT. Did you speak to anyone other than the patient for history (EMS, parent, family, police, friend...)? What history was obtained from this source @ -No Did you review nursing and triage notes (agree or disagree)? Why? @ -I reviewed and agree with nursing and triage notes Were old charts reviewed (outside hosp., previous admission, EMS record, old EKG, old radiological studies, urgent care reports/EKG's, alf records)? Report findings @ -No old charts were reviewed Differential Diagnosis postop infection, DVT, cellulitis, compartment syndrome EKG interpreted by me (3pts min.). @ -As above X-rays interpreted by me (1pt min.). @ -None done CT interpreted by me (1pt min.). @ -None done U/S interpreted by me (1pt. min.). @ -None done What testing was considered but not performed or refused? (CT, X-rays, U/S, labs)? Why? @ -None What meds were considered but not given or refused? Why? @ -None Did you discuss the management of the patient with other professionals (professionals i.e. [facility] Pérez, ACTIVITY COORDINATOR, lab, RT, psych nurse, psychiatric social worker supervisor, shoe singer, teacher, credit or loans officer, disability case manager)? Give summary @ -Case discussed with Bridgette warner for Dr. Sorenson, informed of DVT and okay with discharge on therapeutic Eliquis. Was smoking cessation discussed for >3mins.? @ -No Was critical care preformed (if so, how long)? @ -No Were there social determinants of health that impacted care today? How? (Homelessness, low income, unemployed, alcoholism, drug addiction, transportation, low edu. Level, literacy, decrease access to med. care, usp, rehab)? @ -No Was there de-escalation of care discussed even if they declined (Discuss DNR or withdrawal of care, Hospice)? DNR status @ -No What co-morbidities impacted this encounter? (DM, HTN, Smoking, COPD, CAD, Cancer, CVA, ARF, Chemo, Hep., AIDS, mental health diagnosis, sleep apnea, morbid obesity)? @ -Recent left total knee replacement Was patient admitted / discharged? Hospital course, mention meds given and route, prescriptions, significant lab abnormalities, going to OR and other pertinent info. @ -58-year-old male with outpatient DVT. Care discussed with the orthopedic team. Patient started on Eliquis at therapeutic dose for DVT. Undiagnosed new problem with uncertain prognosis? @ -No Drug Therapy requiring intensive monitoring for toxicity (Heparin, Nitro, Insulin, Cardizem)? @ -No Were any procedures done? @ -No Diagnosis/symptom? @ -DVT Acute, or Chronic, or Acute on Chronic? @ acute Uncomplicated (without systemic symptoms) or Complicated (systemic symptoms)? @ -Default Side effects of treatment? @ -No Exacerbation, Progression, or Severe Exacerbation? @ -No Poses a threat to life or bodily function? How? (Chest pain, [place], [place], pneumonia, PE, COPD, DKA, ARF, appy, cholecystitis, CVA, Diverticulitis, Homicidal, Suicidal, threat to staff... and all critical care pts) @Yes, DVT Disposition Clinical Impression: DVT (deep venous thrombosis) Disposition: HOME SELF-CARE Condition: Good Instructions (If sedation given, give patient instructions): Apixaban (By mouth), Deep Vein Thrombosis (DC) Prescriptions: Apixaban [Eliquis Starter Pack (for VTE)] 5 - 10 mg PO DIRECTED 30 Days #1 each Is patient prescribed a controlled substance at d/c from ED?: No Referrals: None,Stated [Primary Care Provider] - 1-2 days Arsenio Sorenson MD [STAFF PHYSICIAN] - 1-2 days Time of Disposition: 16:40
[2023-08-12 16:28] LABS: Partial Thromboplastin Time 23.6 sec (22.0-30.0)
[2023-08-12 16:37] LABS: ALT 39 U/L (4-49); AST 36 U/L (17-59); African American GFR (CKD) >90 (>60 ml/min/1.73 sqM); Albumin 3.8 g/dL (3.5-5.0); Alkaline Phosphatase 60 U/L (38-126); Anion Gap 6 mmol/L; Blood Urea Nitrogen 22 mg/dL (9-20); Calcium 8.5 mg/dL (8.4-10.2); Carbon Dioxide 24 mmol/L (22-30); Chloride 105 mmol/L (98-107); Glucose 108 mg/dL (74-99); Non-African American GFR(CKD) >90 (>60 ml/min/1.73 sqM); Potassium 4.7 mmol/L (3.5-5.1); Sodium 135 mmol/L (137-145); Total Bilirubin 0.9 mg/dL (0.2-1.3)
[2023-08-12 16:38] LABS: Basophils % (A) 0 %; Eosinophils # (A) 0.1 k/uL (0-0.7); Eosinophils % (A) 1 %; HCT 35.4 % (39.0-53.0); HGB 12.1 gm/dL (13.0-17.5); Lymphocytes # (A) 1.2 k/uL (1.0-4.8); Lymphocytes % (A) 13 %; MCH 31.9 pg (25.0-35.0); MCHC 34.1 g/dL (31.0-37.0); MCV 93.7 fL (80.0-100.0); Mean Platelet Volume 8.1; Monocytes # (A) 0.5 k/uL (0-1.0); Monocytes % (A) 6 %; Neutrophils % (A) 78 %; Platelet Count 264 k/uL (150-450); RBC 3.78 m/uL (4.30-5.90); RDW 12.5 % (11.5-15.5)
[2023-08-12 17:26] VITALS: BP 118/82; PULSE 86; RESP 18; TEMP 98.4
== END 2023-08-12 17:01 | disposition home or self-care (01) ==
LOC: EC 14:22
DX: I82.402 Acute embolism and thrombosis of unspecified deep veins of left lower extremity (principal); Z88.8 Allergy status to other drugs, medicaments and biological substances; Z88.5 Allergy status to narcotic agent
CPT/HCPCS: 36415; 80053; 85025; 85610; 85730; 99283

== ENCOUNTER → 2023-08-12 | Outpatient (CLI) | payer BC ==
--- NOTE | 2023-08-12 14:33 | US ---
EXAMINATION TYPE: US venous doppler duplex LE LT DATE OF EXAM: 08/12/2023 2:06 PM COMPARISON: NONE CLINICAL INDICATION: Male, 58 years old with history of LLE M79.662; Total knee 1 week ago, pain in c mando SIDE PERFORMED: Left TECHNIQUE: The lower extremity deep venous system is examined utilizing real time linear array sonog rogers with graded compression, doppler sonography and color-flow sonography. VESSELS IMAGED: Common Femoral Vein Deep Femoral Vein Greater Saphenous Vein * Femoral Vein Popliteal Vein Small Saphenous Vein * Proximal Calf Veins (* superficial vessels) Left Leg: Positive for DVT - internal echoes that do not compress within the paired peroneal veins a t location of pain called office and they want patient to go to Er, tech wheeled him down IMPRESSION: Positive deep vein thrombosis within the peroneal veins in the patient's area of location of pain.
== END | disposition home or self-care (01) ==
LOC: RADUSWWP 13:05
PROVIDERS: ATTEND Orthopaedic Surgery
DX: I82.452 Acute embolism and thrombosis of left peroneal vein (principal)

== ENCOUNTER 2023-10-28 08:30 | Day surgery (SDC) | payer BC ==
[2023-10-24 10:53] VITALS: BMI 29.0
--- NOTE | 2023-10-27 08:23 | P.HPOR ---
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 He underwent adequate rehabilitation with persistence of his stiffness. Otherwise his postoperative course was uncomplicated. Review of Systems As per HPI Past Medical History Past Medical History: Osteoarthritis (OA) History of Any Multi-Drug Resistant Organisms: None Reported Past Surgical History: Joint Replacement, Orthopedic Surgery Additional Past Surgical History / Comment(s): TOTAL LEFT KNEE. LT KNEE SX- MULTIPLE. EYE SX, LT WRIST SX. Left total knee arthroplasty Past Anesthesia/Blood Transfusion Reactions: No Reported Reaction Smoking Status: Never smoker - Past Family History Mother Family Medical History: No Reported History Additional Family Medical History / Comment(s): ADOPTED-FAMILY HHX Medications and Allergies Home Medications Medication Instructions Recorded Confirmed Type No Known Home Medications 10/24/23 10/24/23 History Allergies Allergy/AdvReac Type Severity Reaction Status Date / Time hydrocodone [From Vicodin] Allergy "felt Verified 10/24/23 10:43 funny and uncomfortable, anxious" morphine AdvReac Nausea & Verified 10/24/23 10:43 Vomiting Physical Examination - Knee left Appearance: previous incision (Well-healed Radha no warmth or erythema) ROM: extension: -20 degrees ROM: flexion: 90 degrees Crepitus with motion: Yes Strength: extension: 5/5 Strength: flexion: 5/5 Results Patient is a well-developed well-nourished male proxy 62, 232 pounds of mesomorphic habitus. HEENT exam is nonfocal, neck is supple. He has painless passive motion of the left hip. On examination of the left knee, incision is well-healed. There is no effusion. Collaterals are stable, Homans negative. His distal neurovascular appears intact in the left lower extremity. - Diagnostic results Knee x-ray: image reviewed (X-rays of the left knee at the office show a stable appearing total knee arthroplasty.) Assessment and Plan Assessment: Status post left total knee arthroplasty Left knee arthrofibrosis Plan: I talked to the patient at length regarding his condition along with treatment options. At this point he remains stiff despite adequate postoperative rehabilitation. After a thorough discussion he opts to proceed with manipulation under anesthesia. Risks and benefits were discussed at length in layman's terms. We will likely perform this as an outpatient procedure utilizing IV sedation.
[~2023-10-28 08:30] MED LIST changes: +LIDOCAINE 1% (10MG/ML) FOR IV START INTRADERMA PRN; -MIDAZOLAM 2 MG/2 ML VIAL IV PRN; -TRANEXAMIC 1,000 MG/100ML-NACL 1,000 MG in SALINE 1 100ML.BAG IVPB PRN
[2023-10-28 08:50] VITALS: TEMP 98
[2023-10-28] MEDS: ONDANSETRON 4 MG/2 ML VIAL IVP STA (09:07)
[2023-10-28] MEDS: LACTATED RINGERS 1,000 ML IV SCH (09:07)
[2023-10-28] MEDS: IV FLUID CONTINUATION 1,000 ML IV ONE (09:15)
[2023-10-28] MEDS ORDERED: PROPOFOL 10 MG/ML 20 ML VIAL IV ONE (09:36)
--- NOTE | 2023-10-28 09:45 | P.OP ---
Date of Procedure: 10/28/23 Preoperative Diagnosis: Status post left total knee arthroplasty/arthrofibrosis Postoperative Diagnosis: Same Procedure(s) Performed: Manipulation under anesthesia left knee Anesthesia: MAC Surgeon: Arsenio Sorenson Estimated Blood Loss (ml): 0 Pathology: none sent Condition: stable Disposition: PACU Indications for Procedure: The patient is a 58-year-old male who previously underwent left total knee arthroplasty who presented with persistent stiffness despite adequate postopera tive rehabilitation. A discussion of the risks and benefits of manipulation under anesthesia was made with the patient. He opted to proceed. Risks of the procedure to include fracture, tendon rupture, possible recurrence of stiffness and need for subsequent procedures was discussed. Informed consent was obtained. Operative Findings: As below Description of Procedure: The patient was brought to the recovery room, and after induction of IV sedation I gently manipulated the left knee. I was able to go from 90 degrees of flexion to 115 degrees. Moderate adhesions were encountered. I was able to obtain -10 degrees full extension. No complications were incurred. The patient was monitored until fully awake. There was no blood loss.
[2023-10-28] MEDS: KETOROLAC 15 MG/ML 1 ML VIAL IVP STA (09:48)
[2023-10-28 10:39] VITALS: RESP 16
[2023-10-28 11:16] VITALS: BP 127/60; PULSE 68
== END 2023-10-28 11:16 | disposition home health service (06) ==
LOC: OR 08:30
PROVIDERS: ATTEND Orthopaedic Surgery
DX: M24.662 Ankylosis, left knee (principal); Z96.652 Presence of left artificial knee joint; Z88.5 Allergy status to narcotic agent
CPT/HCPCS: 27570; J2405; J1885; J2704